=== PATIENT | male | born 1950 | race Caucasian/White ===

== ENCOUNTER 2019-10-13 13:23 | Outpatient (CLI) | payer MEDICARE, OTHER, SELFPAY ==
--- NOTE | 2019-10-13 13:46 | CT_ITS ---
WS: [id number] CT scan of the abdomen and pelvis with Oral and IV contrast. Additional two-dimensional coronal and s agittal reconstruction was performed. 10/13/2019 Clinical Data: ABD PAIN/LUQ PROTRUSION/BLOATING Comparison: None. DLP: 1239.[address] scans at [facility] use at least one of these dose optimization techniques: automat ed exposure control; mA and/or kV adjustment per patient size (includes targeted exams where dose is matched to clinical indication); or iterative reconstruction. Findings: The lower lungs show no nodules, masses or effusions. The liver, gallbladder, spleen, adrenal glands and pancreas are normal. The kidneys show equal bilateral contrast excretion with no cyst or masses. The abdominal aorta is normal in size with minimal calcification in the wall.. No appendicitis or diverticulitis is seen. Oral contrast is in the stomach and small bowel and there is no bowel dilatation. No abscess, adenopathy, ascites, mass, obstruction or free air is seen. The bladder is unremarkable. The prostate is enlarged with calcification within. No inguinal hernia i s seen. The bones of the lower thorax, lumbar spine, pelvis, and hips are normal. CT/CT abdomen pelvis w con* [id number] Impression: Negative CT scan of the abdomen and pelvis.
[2019-10-13 14:36] LABS: Blood Urea Nitrogen 17 mg/dL (8-23); Glomerular Filtration Rate 66.8 mL/min (90-130)
[2019-10-13] MEDS: iohexol 300 mg/mL 50 mL Btl PO (14:51)
[2019-10-13] MEDS: iohexol 300 mg/mL 100 mL Btl IV (14:51)
== END 2019-10-13 13:24 | disposition home or self-care (01) ==
PROVIDERS: Visit Provider Surgery
DX: R10.12 Left upper quadrant pain (principal)
CPT/HCPCS: 74177; 82565; 84520; Q9967

== ENCOUNTER → 2020-01-16 15:40 | Outpatient (BNVA) | payer MEDICARE, OTHER, SELFPAY | PROVIDERS: Visit Provider Urology | DX: N40.1 Benign prostatic hyperplasia with lower urinary tract symptoms (principal); N52.1 Erectile dysfunction due to diseases classified elsewhere; R97.20 Elevated prostate specific antigen [PSA] | CPT/HCPCS: 81001; 84153 ==

== ENCOUNTER → 2020-01-18 09:07 | Outpatient (BNVA) | payer MEDICARE, OTHER, SELFPAY | PROVIDERS: Visit Provider Family Medicine | DX: E78.5 Hyperlipidemia, unspecified (principal); M10.9 Gout, unspecified | CPT/HCPCS: 80053; 80061; 84550; 85025; 87086 ==

== ENCOUNTER → 2020-08-23 11:09 | Outpatient (BNVA) | payer MEDICARE, OTHER, SELFPAY | PROVIDERS: Visit Provider Family Medicine | DX: E78.5 Hyperlipidemia, unspecified (principal); M10.9 Gout, unspecified | CPT/HCPCS: 80053; 80061; 84550; 85025 ==

== ENCOUNTER → 2021-01-15 10:15 | Outpatient (BNVA) | payer MEDICARE, OTHER, SELFPAY | PROVIDERS: PCP Family Medicine; Visit Provider Urology | DX: R97.20 Elevated prostate specific antigen [PSA] (principal); N40.1 Benign prostatic hyperplasia with lower urinary tract symptoms; N52.1 Erectile dysfunction due to diseases classified elsewhere | CPT/HCPCS: 81003; 84153 ==

== ENCOUNTER 2021-02-15 19:15 | Emergency (ER) | payer MEDICARE, OTHER, SELFPAY ==
--- NOTE | 2021-02-15 19:41 | W.ED.GENADLT ---
HPI - General Adult General: Stated complaint: Need a Oxgen Tank\Covid + In Covid Room Time Seen by Provider: 02/15/21 19:38 History of Present Illness: HPI narrative: 70-year-old male patient was diagnosed with COVID-19 about 2 weeks ago. Patient reports that his family has been monitoring his oxygen level has noticed that it drops below 90% at times. They were concerned that he is in need of oxygen. Patient reports some mild shortness of breath but nothing significant. Patient is alert and oriented. Patient denies any other concerns. Patient is looking for supplemental oxygen to help with his low oxygen levels. Associated symptoms: Reports dyspnea (Mild hypoxia) Review of Systems General: Reports: 10 or more systems reviewed and unremarkable except in HPI and below Resp: Reports: dyspnea (Mild hypoxia) PFSH ED PFSH: Medical History (Updated 02/15/21 @ 19:41 by LOPEZ Warner) Dupuytren's contracture of both hands Elevated PSA Erectile dysfunction GERD (gastroesophageal reflux disease) Hyperlipidemia Surgical History H/O toe surgery Hx of arthroscopy of right knee Hx of left knee surgery Family History Brother Cancer prostate Father , age 80 Cancer prostate Mother Cancer breast Social History Smoking and tobacco status: former smoker Alcohol intake: former Year of sobriety/quit date alcohol: 1999 Former alcohol use details: 2-3 beer per day Lives independently: Yes Household members: spouse Housing: House Marital status: Current occupational status: retired History of recent travel: No Current gender identity: Male Physical Exam Const: COMMON NORMALS: no acute distress and patient oriented x3 GENERAL APPEARANCE: cooperative HENMT: COMMON NORMALS: normocephalic and Normal external nose present HEAD & SCALP: normal to inspection and normocephalic NOSE: Normal external nose present MOUTH: Normal oral and palatal mucosa present Eye: GENERAL EYE: appearance normal, both eyes and all related structures Neck/C-Spine: COMMON NORMALS: full ROM Chest: COMMONS NORMALS: normal inspection of the chest Resp: COMMON NORMALS: normal respiratory effort EFFORT & INSPECTION: Yes able to speak in complete sentences AUSCULTATION: diminished lung sounds Cardio: COMMON NORMALS: regular rate and regular rhythm RATE: regular rate RHYTHM: regular rhythm GI: COMMON NORMALS: non-tender : COMMON NORMALS: Yes no CVA tenderness BLADDER/KIDNEY EXAM: Yes no CVA tenderness Back/Pelvis: COMMON NORMALS: no CVA tenderness and thoracic and lumbar spine normal to inspection Extremity: COMMON NORMALS: normal to inspection Neuro: COMMON NORMALS: patient oriented x3 and moves all extremities Psych: COMMON NORMALS: mental status grossly normal and cooperative Skin: COMMON NORMALS: no rashes or lesions noted GENERAL SKIN EXAM: no rashes or lesions noted MDM - General Adult MDM Narrative: Medical decision making narrative: Patient came in today for concerns of some low oxygen levels at home. He reports some oxygen that gets below 90% on the pulse oximetry at home. At this time patient's O2 level is doing well in the low to mid 90s. Patient denies any chest pain or difficulty otherwise. Vital signs are normal. Differential diagnosis includes COVID-19, hypoxia related to COVID-19, pneumonia. Reviewed exam with patient recommended oxygen to be used as needed for shortness of breath or levels of low oxygen. Also recommended patient use it routinely at night. Patient reported understanding and agreed to plan. I feel that the patient will probably be benefit with the supplemental oxygen. Discharge Plan Discharge Patient Disposition: Home Clinical Impression: COVID-19, Hypoxia Condition: Stable Prescriptions: No Action aspirin [Adult Aspirin Regimen] 81 mg tablet,delayed release (DR/EC) 81 mg PO DAILY RF: 0 melatonin 5 mg tablet 10 mg PO DAILY RF: 0 omeprazole 20 mg capsule,delayed release(DR/EC) 20 mg PO DAILY Qty: 30 RF: 0 multivitamin Tablet 1 tab PO DAILY Qty: 30 RF: 0 omega-3 fatty acids 1,000 mg capsule 1,000 mg PO DAILY Qty: 30 RF: 0 allopurinol 300 mg tablet See Rx Instructions .ROUTE .COMPLEX Qty: 90 RF: 0 tamsulosin 0.4 mg capsule See Rx Instructions .ROUTE .COMPLEX Qty: 90 RF: 0 atorvastatin 40 mg tablet See Rx Instructions .ROUTE .COMPLEX Qty: 90 RF: 0 Discharge Orders: Discharge ED (Routine); Ordered 02/15/21 Ordered By: Austin Good Other Ambulatory Orders: DME: Oxygen (Order) Location: None Selected Ordered By: Austin Good Referrals: Mariza Contreras MD [Primary Care Provider] - Discharge Diet: Usual diet Discharge Activity: Increase activity as tolerated Patient Instructions: Opioid Safety Activity Restrictions/Additional Instructions: Home and rest. Medication as directed. Use oxygen as needed for shortness of breath or levels less than 90% on pulse oximetry. Follow-up with primary care in 1 to 2 weeks for recheck. Return to the ER for worsening symptoms or new concerns. Coding Level of Care Code ED [employer] Operator for Gary Mas
[2021-02-15 19:49] VITALS: BP 116/66; PULSE 94; RESP 22; TEMP 37.2; O2SAT 95; BMI 35.6
[2021-02-15 19:52] VITALS: O2SAT 95
== END 2021-02-15 19:57 | disposition home or self-care (01) ==
PROVIDERS: Emergency Provider Nurse Practitioner Family; PCP Family Medicine
DX: U07.1 COVID-19 (principal); R09.02 Hypoxemia; E78.5 Hyperlipidemia, unspecified; Z87.891 Personal history of nicotine dependence
CPT/HCPCS: 99282

== ENCOUNTER 2022-01-15 08:48 | Outpatient (CLI) | payer MEDICARE, SELFPAY | END 2022-01-15 08:49 | disposition home or self-care (01) | LOC: LAB 08:53 | PROVIDERS: PCP Family Medicine; Visit Provider Urology | DX: R97.20 Elevated prostate specific antigen [PSA] (principal); N40.1 Benign prostatic hyperplasia with lower urinary tract symptoms; N52.1 Erectile dysfunction due to diseases classified elsewhere | CPT/HCPCS: 81003; 84153; 99213 ==

== ENCOUNTER → 2022-05-06 10:19 | Outpatient (BNVA) | payer MEDICARE, SELFPAY | PROVIDERS: PCP Family Medicine; Visit Provider Family Medicine | DX: E78.5 Hyperlipidemia, unspecified (principal); M10.9 Gout, unspecified; M17.12 Unilateral primary osteoarthritis, left knee; N52.1 Erectile dysfunction due to diseases classified elsewhere | CPT/HCPCS: 80053; 80061; 84550 ==

== ENCOUNTER 2023-01-04 11:11 | Outpatient (CLI) | payer MEDICARE, SELFPAY ==
[2023-01-04 12:16] LABS: Prostate Specific AG Urology 3.54 ng/mL (0-4)
== END 2023-01-04 11:12 | disposition home or self-care (01) ==
PROVIDERS: PCP Family Medicine; Visit Provider Urology
DX: R97.20 Elevated prostate specific antigen [PSA] (principal)
CPT/HCPCS: 36415; 84153

== ENCOUNTER → 2023-01-12 09:40 | Outpatient (BNVA) | payer MEDICARE, SELFPAY | PROVIDERS: PCP Family Medicine; Visit Provider Urology | DX: N40.1 Benign prostatic hyperplasia with lower urinary tract symptoms (principal); R97.20 Elevated prostate specific antigen [PSA]; N52.1 Erectile dysfunction due to diseases classified elsewhere | CPT/HCPCS: 81003; 99213 ==

== ENCOUNTER 2023-04-20 09:16 | Outpatient (CLI) | payer MEDICARE, SELFPAY ==
--- NOTE | 2023-04-20 09:24 | XR_ITS ---
WS: [id number] EXAMINATION: XR lumbar spine 2-3V* [id number] REASON FOR EXAM: hip pain COMPARISON: None available. ORDER DATE: 04/20/2023 9:34 AM FINDINGS: Generalized degenerative spinal changes are seen including moderate degenerative endplate changes and marginal osteophytes. There is no significant narrowing of the intervertebral disc spaces. There is no evidence of acute compression deformities or spondylolisthesis. Scattered atherosclerotic calcifie d plaque in the aorta and iliac vessels. IMPRESSION: MODERATE DEGENERATIVE SPINE CHANGE AND SPONDYLOSIS.
--- NOTE | 2023-04-20 09:24 | XR_ITS ---
WS: [id number] EXAMINATION: XR hip RT 2-3V wo/w pel* [id number] REASON FOR EXAM: back pain COMPARISON: None available. ORDER DATE: 04/20/2023 9:34 AM TECHNIQUE: Frontal internal/external rotation views of the right hip were obtained. X-RAY FINDINGS: There are no fractures or dislocations. Normal motion with internal/external rotation is present. No degenerative changes. IMPRESSION: 1. No fractures or dislocations of the right hip. 2. Normal motion with internal/external rotation.
== END 2023-04-20 09:17 | disposition home or self-care (01) ==
PROVIDERS: PCP Family Medicine; Visit Provider Family Medicine
DX: M25.551 Pain in right hip (principal); M54.9 Dorsalgia, unspecified; M47.816 Spondylosis without myelopathy or radiculopathy, lumbar region; M25.78 Osteophyte, vertebrae; R97.20 Elevated prostate specific antigen [PSA]; E78.5 Hyperlipidemia, unspecified; M10.9 Gout, unspecified
CPT/HCPCS: 72100; 73502; 80053; 80061; 84153; 84550; 85025

== ENCOUNTER → 2024-04-25 10:59 | Outpatient (BNVA) | payer MEDICARE, SELFPAY | PROVIDERS: PCP Family Medicine; Visit Provider Family Medicine | DX: Z00.00 Encounter for general adult medical examination without abnormal findings (principal); E78.5 Hyperlipidemia, unspecified; R97.20 Elevated prostate specific antigen [PSA]; M10.9 Gout, unspecified; N52.1 Erectile dysfunction due to diseases classified elsewhere; M54.50 Low back pain, unspecified; G89.29 Other chronic pain | CPT/HCPCS: 80053; 80061; 81000; 84153; 84550; 85025 ==

== ENCOUNTER 2024-05-05 10:08 | Outpatient (CLI) | payer MEDICARE, SELFPAY ==
--- NOTE | 2024-05-05 15:30 | CT_ITS ---
WS: [id number] CT LUMBAR SPINE, noncontrast. HISTORY: low back pain TECHNIQUE: Contiguous 2.0 mm axial imaging are performed. Sagittal and coronal reformats are submitte d and reviewed. [facility] CT [facility] use at least one of these dose optimization techni ques: automated exposure control; mA and/or kV adjustment per patient size (includes targeted exams w here dose is matched to clinical indication); or iterative reconstruction. IV contrast: None DLP: 1508.20 mGy.cm COMPARISON: None available. Mild LEFT curvature lumbar spine. Slight increase in the lumbar lordosis. No lumbar spine fracture. F acet joints are normally aligned. Disc spaces are well preserved. L1-2: Normal. L2-3: Mild annular disc bulging with facet and ligamentum flavum hypertrophy. L3-4: Mild facet joint arthritis. No stenosis or disc protrusion. Facet joints are very slightly wide aldo. L4-5: Mild diffuse annular disc bulging. Mild encroachment upon the ventral thecal sac. Very mild ton ateral foraminal stenosis, RIGHT greater than LEFT. L5-S1: Mild osteophytic ridging. Mild LEFT and no RIGHT foraminal stenosis. Mild atherosclerosis thoracic aorta and proximal mesenteric arteries. No aneurysm. CT/CT lumbar spine wo con* [id number] IMPRESSION: 1. Very mild degenerative levoscoliosis lumbar spine. 2. No large central disc protrusions or significant foraminal or central steno sis. 3. Mild bilateral foraminal stenosis at L4-5, RIGHT greater than LEFT. 4. Mild bilateral foraminal stenosis at L5-S1, LEFT greater than RIGHT. 5. Very slight widening of the L3-4 facet joints. This may be seen with instab ility.
== END 2024-05-05 10:09 | disposition home or self-care (01) ==
PROVIDERS: PCP Family Medicine; Visit Provider Family Medicine
DX: M54.50 Low back pain, unspecified (principal); G89.29 Other chronic pain
CPT/HCPCS: 72131

== ENCOUNTER 2025-04-26 11:14 | Outpatient (CLI) | payer MEDICARE, SELFPAY ==
--- NOTE | 2025-04-26 11:23 | XRR_ITS ---
PROCEDURE INFORMATION: Exam: XR Chest Exam date and time: 04/26/2025 11:39 AM Age: 74 years old Clinical indication: Cough and shortness of breath; Cough & SOB x few months with activity; Additional info: Dyspnea TECHNIQUE: Imaging protocol: Radiologic exam of the chest. Views: 2 views. PA and Lateral COMPARISON: CT abdomen pelvis w con* [id number] 10/13/2019 2:48 PM FINDINGS: Tubes, catheters and devices: None. Lungs: Evidence for calcified lung granuloma in the right chest. The lungs appear otherwise clear. Pleural spaces: No pleural effusion. No pneumothorax. Heart/Mediastinum: Coronary arterial calcifications are demonstrated. The mediastinum appears otherwise unremarkable. Vasculature: Mild atherosclerotic calcification demonstrated within the aorta. Bones/joints: Mild to moderate generalized bony degenerative changes. Bony structures appear otherwise unremarkable. XR/XR chest 2V* [id number] IMPRESSION: 1. No evidence for an acute cardiopulmonary process. 2. Chronic findings.
== END 2025-04-26 11:15 | disposition home or self-care (01) ==
PROVIDERS: PCP Family Medicine; Visit Provider Family Medicine
DX: J98.4 Other disorders of lung (principal); I10 Essential (primary) hypertension; E78.5 Hyperlipidemia, unspecified; R97.20 Elevated prostate specific antigen [PSA]; N52.1 Erectile dysfunction due to diseases classified elsewhere; I25.10 Atherosclerotic heart disease of native coronary artery without angina pectoris
CPT/HCPCS: 71046; 80053; 80061; 84153; 84443; 84550; 85025

== ENCOUNTER 2025-05-01 09:08 | Outpatient (CLI) | payer MEDICARE, SELFPAY ==
[2025-05-01 09:55] VITALS: BMI 39.5
--- NOTE | 2025-05-01 09:58 | ECG_ITS ---
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 Interpretive Statements Procedure: A total of 0.4 mg of Lexiscan was infused over 20 seconds. The stress phase was continued for a total of 5 minutes. Sestamibi was injected 20 seconds after the Lexiscan infusion. Vital signs and ECG findings: Baseline blood pressure was 129/70 with a heartrate of 52 bpm. After Lexiscan injection the blood pressure decreased to 80 of 108/65 and heart rate increased to 66 bpm. At the end of recovery blood pressure was 115/62 with a heart rate of 62 bpm. The baseline EKG showed sinus bradycardia with a heart rate of 58 bpm and nonspecific T wave flattening. There were no new ST or T wave changes or arrhythmias during the stress test. Conclusion: 1. Normal EKG response to Lexiscan infusion 2. No Lexiscan induced chest pain or cardiac arrhythmia. 3. Normal blood pressure and heart rate response. 4. Nuclear myocardial perfusion scan pending; see separate report. Electronically Signed On 05-01-2025 22:24:24 CDT by Fortunato Kennedy M.D. [email or web address]
--- NOTE | 2025-05-01 09:58 | NMCV_ITS ---
NM andrew perf SPECT r/s* [id number] Albert Saenz Age: 74 Gender: M : 1950 Exam Date: 05/01/2025 10:19 Ordering Phys: Davy Hinds MD Technologist: MIRYAM Osorio Exam Location: [facility] [place] Indications: cp STRESS TEST Please see separate stress test report in [facility] for full findings IMAGE PROTOCOL Rest/Stress 1 Lexiscan Day Radiopharmaceutical Dose (mCi) Administration Site Administered by Rest: Tc-99m 10.6 IV Sofia Dang, FEED HANDLER Sestamibi Stress:Tc-99m 32.7 IV Sofia Edmondsone, FEED HANDLER Sestamibi Rest: 01-May-2025 60 Discovery 630 Stress: 01-May-2025 30 Discovery 630 0.4mg Lexiscan. Images obtained in supine and prone position. SPECT RESULTS Technical Quality: Good Raw Data Analysis: Normal Image Corrections: No attenuation or motion correction applied Summed Stress Score: 3 Summed Rest Score: 10 Summed Difference Score: 0 PERFUSION FINDINGS Myocardial perfusion imaging reveals the defect is consistent with diaphragmatic attenuation. FUNCTIONAL RESULTS (calculated via Gated SPECT) Stress Image LV EF (%): 58 Stress EDV (mL):136 TID: 0.87 Stress ESV (mL):57 FUNCTIONAL FINDINGS: There is normal left ventricular systolic function. IMPRESSIONS Myocardial perfusion imaging is negative for ischemia and infarction Normal LV systolic function Fortunato Kennedy MD, FACC (Electronically Signed) Final Date: 01 May 2025 13:03 S
[2025-05-01 11:14] VITALS: BP 115/62; PULSE 62
== END 2025-05-01 09:09 | disposition home or self-care (01) ==
LOC: CDL 09:13
PROVIDERS: PCP Family Medicine; Visit Provider Family Medicine
DX: R07.9 Chest pain, unspecified (principal); J98.6 Disorders of diaphragm
CPT/HCPCS: 36415; 78452; 93017; 96374; A9500; J2785

== ENCOUNTER 2025-05-25 08:19 | Outpatient (CLI) | payer MEDICARE, SELFPAY ==
--- NOTE | 2025-05-25 08:30 | USCV_ITS ---
Albert Saenz Age: 75 Gender: M : 1950 Exam Date: 05/25/2025 08:58 Ordering Phys: Davy Hinds MD Technologist: LOREN Exam Location: [facility] [place] Indication: dyspnea/ chest pain BP: 118 / 82 HR: 51 Rhythm: Sinus Technical Quality: Adequate MEASUREMENTS (Male / Female) Normal Values 2D ECHO LV Diastolic Diameter PLAX 5.5 cm 4.2 - 5.9 / 3.9 - 5.3 cm IVS Diastolic Thickness 0.8 cm 0.6 - 1.0 / 0.6 - 0.9 cm IVS Systolic Thickness 1.2 cm LVPW Diastolic Thickness 1.0 cm 0.6 - 1.0 / 0.6 - 0.9 cm LVPW Systolic Thickness 1.3 cm LVOT Diameter 2.1 cm LV Ejection Fraction 2D Teich 58.3 % LV Ejection Fraction MOD 4C 64.0 % LV Ejection Fraction MOD 2C 61.8 % LV Ejection Fraction 2C AL 62.2 % LA Diameter 4.4 cm RA Systolic Volume 4C AL 48.9 ml RA Systolic Volume 4C MOD 49.4 ml LA Sys Volume AL 99.9 cm cubed LA Sys Volume Index AL 36.6 cm cubed/m squared Aorta at Sinotubular Diameter 2.6 cm IVC Diameter 1.8 cm M-MODE LA Ao Ratio MM 1.9 AV Cusp Separation MM 1.2 cm DOPPLER AV Peak Velocity 181.0 cm/s LVOT Peak Velocity 122.0 cm/s AV Area Cont Eq vti 2.7 cm squared AV Area Cont Eq pk 2.3 cm squared MV Peak Velocity 84.0 cm/s MV Area PHT 5.4 cm squared Mitral E to A Ratio 1.1 TR Peak Velocity 372.0 cm/s TR Peak Gradient 55.4 mmHg TR Mean Velocity 286.0 cm/s TR Mean Gradient 35.8 mmHg TR Velocity Time Integral 98.0 cm PV Peak Velocity 145.0 cm/s RV Ejection Time 0.3 s FINDINGS Left Ventricle Normal left ventricular size, systolic function and wall thickness, with no regional wall motion abnormalities. Left ventricular ejection fraction is estimated at 60 %. Grade II/IV diastolic dysfunction, moderately elevated filling pressures. Right Ventricle Normal right ventricular size and systolic function. Right Atrium Normal right atrial size. Left Atrium Moderately increased left atrial size. IA Septum Normal appearance of the interatrial septum. Mitral Valve Moderately thickened mitral valve. No mitral valve stenosis. Mild-moderate mitral valve regurgitation. Aortic Valve Mild aortic valve calcification. No aortic valve stenosis. Mild aortic valve regurgitation. Tricuspid Valve Normal tricuspid valve structure. No tricuspid valve stenosis or regurgitation. Normal pulmonary pressure. Pulmonic Valve Normal pulmonic valve structure. No pulmonic valve stenosis or regurgitation. Pericardium No pericardial effusion. Aorta Normal diameter of the aortic root and ascending thoracic aorta. IVC Normal IVC diameter. CONCLUSIONS Normal left ventricular size, systolic function and wall thickness, with no regional wall motion abnormalities. Left ventricular ejection fraction is estimated at 60 %. Grade II/IV diastolic dysfunction, moderately elevated filling pressures. Moderately thickened mitral valve. No mitral valve stenosis. Mild-moderate mitral valve regurgitation. Mild aortic valve calcification. No aortic valve stenosis. Mild aortic valve regurgitation. There is no pericardial effusion. Right atrial pressure is around 5 mm of mercury. Bri Morales MD (Electronically Signed) Final Date: 25 May 2025 21:11 S
== END 2025-05-25 08:20 | disposition home or self-care (01) ==
PROVIDERS: PCP Family Medicine; Visit Provider Family Medicine
DX: R07.9 Chest pain, unspecified (principal); R93.1 Abnormal findings on diagnostic imaging of heart and coronary circulation; I51.7 Cardiomegaly; I34.0 Nonrheumatic mitral (valve) insufficiency; I35.8 Other nonrheumatic aortic valve disorders; I35.1 Nonrheumatic aortic (valve) insufficiency
CPT/HCPCS: 93306